=== PATIENT | male | born 1960 | race African-American/Black ===

== ENCOUNTER → 2016-05-29 | Outpatient (CLI) | payer OTHER ==
--- NOTE | 2016-05-29 09:44 | REP ---
Clinical: Lower back pain . Technique: AP, lateral, bilateral oblique, and coned-down views. Findings: Alignment and lordosis is maintained. The vertebral bodies including transverse process and spinous processes are intact and there is no evidence for acute fracture / compression injury or subluxation. No evidence for spondylolysis or spondylolisthesis. Mild to moderate multilevel degenerative changes include anterior spurring/osteophyte formation, endplate sclerosis and disc space narrowing most notably involving the L2-3, L5-S1, and L1-2 levels. Impression: Moderate multilevel degenerative changes. Signed by Lewis Diaz MD 05/29/2016 09:35 A
== END ==
LOC: M RAD 09:09
PROVIDERS: ATTEND Surgery
DX: M54.5 Low back pain (principal)